=== PATIENT | male | born 1970 | race Hispanic/Latino ===

== ENCOUNTER 2020-05-15 23:50 | Observation (INO) | payer BC ==
--- OUTSIDE RECORDS SUMMARY | 2020-05-15 23:52 | XMS REPORT | Clinical Summary ---
:1970 Author Organization [facility] Address [address] [place] [address] Care Team Providers Name Role Phone Kevin Byers MD Primary Care Provider Allergies Not on File Medications Medication Sig Dispensed Refills Start Date End Date Status lisinopril TK 1 T PO QD WITH 5 12/16/2017 Active (PRINIVIL,ZESTRIL) 2.5 FOOD mg tablet Active Problems Problem Noted Date Sleep apnea 12/31/2017 Essential hypertension 12/31/2017 Bradycardia 12/31/2017 Surgical History Surgery Date Site/Laterality Comments NASAL SINUS SURGERY Medical History Medical History Date Comments Hypertension Sleep apnea, obstructive CPAP Family History Medical History Relation Name Comments Heart attack Father Relation Name Status Comments Father Social History Tobacco Use Types Packs/Day Years Used Date Never Assessed Sex Assigned at Date Recorded Not on file Last Filed Vital Signs Not on file Plan of Treatment Health Maintenance Due Date Last Done Comments INFLUENZA VACCINE 01/30/2020 Results Not on fileafter 05/15/2019 (Home) [place] [address] Advance Directives For more information, please contact: [phone] Type Date 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
[2020-05-16] MEDS ORDERED: MORPHINE 4 MG/ML SYR ONE ×2 (00:18→01:52)
[2020-05-16 00:29] LABS: Absolute Lymphocytes (CBC) 3.7 K/uL (0.7-4.9); Basophils % 0.3 % (0-1.3); Hematocrit 48.1 % (39.6-49.0); Lymphocytes % 21.2 % (15.3-44.8); MPV 8.6 fL (7.6-11.3); RBC Red Blood Cell Count 5.45 M/uL (4.33-5.43)
[2020-05-16 00:32] LABS: Protime INR 1.01
[2020-05-16 00:46] LABS: ALT/SGPT 37 U/L (12-78); AST/SGOT 23 U/L (15-37); Albumin 3.9 g/dL (3.4-5.0); Alkaline Phosphatase 115 U/L (45-117); BUN Blood Urea Nitrogen 21 mg/dL (7-18); Bicarbonate 25 mmol/L (21-32); Bilirubin Direct < 0.1 mg/dL (0-0.2); Bilirubin Total 0.3 mg/dL (0.2-1.0); Glucose Level 96 mg/dL (74-106); Magnesium 2.2 mg/dL (1.8-2.4); NT PRO-BNP 17 pg/mL (<125); Potassium 3.8 mmol/L (3.5-5.1); Protein, Total 8.3 g/dL (6.4-8.2); Sodium Level 139 mmol/L (136-145); Troponin (Emerg Dept Use Only) < 0.02 ng/mL (0.0-0.045)
[2020-05-16] MEDS ORDERED: LORazepam 2 MG/ML VIAL ONE (02:28)
[2020-05-16 02:37] LABS: Urine Blood NEGATIVE (NEG); Urine Glucose NEGATIVE (NEG); Urine Protein NEGATIVE (NEG); Urine Specific Gravity 1.025 (1.005-1.030)
[2020-05-16 02:54] LABS: Barbiturates NEGATIVE (NEGATIVE); Benzodiazepines NEGATIVE (NEGATIVE); Cocaine NEGATIVE (NEGATIVE); METHAMPHETAM NEGATIVE (NEGATIVE); Methadone NEGATIVE (NEGATIVE); Opiates POSITIVE (NEGATIVE); Phencyclidine NEGATIVE (NEGATIVE); THC Cannibis POSITIVE (NEGATIVE)
--- NOTE | 2020-05-16 03:19 | EDPHYS ---
Physician Documentation [facility] Name: Maik Amaral Age: 50 yrs Sex: Male : 1970 Arrival Date: 05/15/2020 Time: 23:51 Bed 8 Private MD: ED Physician Jeancarlos Logan HPI: 05/16 01:14 This 50 yrs old Male presents to ER via Unassigned with complaints of Back mh7 Pain. 01:14 The patient presents with pain that is acute, with no known mechanism of injury. The mh7 symptoms are located in the right subscapular area. 01:15 Onset: The symptoms/episode began/occurred today. The pain does not radiate. mh7 01:15 Associated signs and symptoms: Pertinent negatives: abdominal pain, chest pain, mh7 constipation, dysuria, fever, headache, hematuria, incontinence, nausea, numbness, tingling, urinary retention, vomiting, weakness. The problem was sustained from unknown cause. Modifying factors: The patient symptoms are alleviated by nothing, the patient symptoms are aggravated by supine position. Severity of symptoms: At their worst the symptoms were moderate, earlier today, in the emergency department the symptoms are unchanged. Historical: - Allergies: 00:03 No Known Allergies; lp1 - Home Meds: 00:03 Suboxone sublingual sublingual [Active]; lp1 - PMHx: 00:03 None; lp1 - PSHx: 00:03 R Rotator cuff repair 05/02/20; lp1 - Immunization history:: Adult Immunizations up to date. - Social history:: Smoking status: Patient denies any tobacco usage or history of. ROS: 01:15 Constitutional: Negative for fever, chills, and weight loss, Eyes: Negative for injury, mh7 pain, redness, and discharge, ENT: Negative for injury, pain, and discharge, Neck: Negative for injury, pain, and swelling, Respiratory: Negative for shortness of breath, cough, wheezing, and pleuritic chest pain, Abdomen/GI: Negative for abdominal pain, nausea, vomiting, diarrhea, and constipation, : Negative for injury, bleeding, discharge, and swelling, MS/Extremity: Negative for injury and deformity, Skin: Negative for injury, rash, and discoloration, Neuro: Negative for headache, weakness, numbness, tingling, and seizure, Psych: Negative for depression, anxiety, suicide ideation, homicidal ideation, and hallucinations, Allergy/Immunology: Negative for hives, rash, and allergies, Endocrine: Negative for neck swelling, polydipsia, polyuria, polyphagia, and marked weight changes, Hematologic/Lymphatic: Negative for swollen nodes, abnormal bleeding, and unusual bruising. Exam: 01:15 Head/Face: Normocephalic, atraumatic. Eyes: Pupils equal round and reactive to light, mh7 extra-ocular motions intact. Lids and lashes normal. Conjunctiva and sclera are non-icteric and not injected. Cornea within normal limits. Periorbital areas with no swelling, redness, or edema. Neck: Trachea midline, no thyromegaly or masses palpated, and no cervical lymphadenopathy. Supple, full range of motion without nuchal rigidity, or vertebral point tenderness. No Meningismus. Chest/axilla: Normal chest wall appearance and motion. Nontender with no deformity. No lesions are appreciated. Cardiovascular: Regular rate and rhythm with a normal S1 and S2. No gallops, murmurs, or rubs. Normal PMI, no JVD. No pulse deficits. Respiratory: Lungs have equal breath sounds bilaterally, clear to auscultation and percussion. No rales, rhonchi or wheezes noted. No increased work of breathing, no retractions or nasal flaring. Abdomen/GI: Soft, non-tender, with normal bowel sounds. No distension or tympany. No guarding or rebound. No evidence of tenderness throughout. 01:15 Skin: Warm, dry with normal turgor. Normal color with no rashes, no lesions, and no evidence of cellulitis. MS/ Extremity: Pulses equal, no cyanosis. Neurovascular intact. Full, normal range of motion. Neuro: Awake and alert, GCS 15, oriented to person, place, time, and situation. Cranial nerves II-XII grossly intact. Motor strength 5/5 in all extremities. Sensory grossly intact. Cerebellar exam normal. Normal gait. Psych: Awake, alert, with orientation to person, place and time. Behavior, mood, and affect are within normal limits. 01:15 Constitutional: The patient appears in no acute distress, alert, awake, anxious, uncomfortable. 01:15 Back: pain, that is mild, of the right subscapular area, ROM is painful, with all movement, normal spinal alignment noted, CVA tenderness, is absent, vertebral tenderness, is not appreciated, muscle spasm, is not present. Vital Signs: 00:33 BP 139 / 75; Pulse 95; Resp 18; Pulse Ox 99% on R/A; mg2 01:18 BP 138 / 74; Pulse 91; Resp 18; Temp 98.5; Pulse Ox 97% on R/A; mg2 02:11 BP 132 / 80; Pulse 95; Resp 20; Pulse Ox 97% on R/A; lp1 03:22 Weight 92.99 kg; Height 5 ft. 8 in. (172.72 cm); mg2 04:17 BP 129 / 81; Pulse 100; Resp 20; Pulse Ox 99% on 3 lpm NC; mg2 04:55 BP 131 / 95; Pulse 112; Resp 34; Pulse Ox 100% on 100% Non-rebreather mask; mg2 05:32 BP 152 / 81; Pulse 100; Resp 21; Temp 98; Pulse Ox 99% on 100% Non-rebreather mask; mg2 03:22 Body Mass Index 31.17 (92.99 kg, 172.72 cm) mg2 MDM: 03:16 Differential diagnosis: Basilar Pneumonia chronic back pain, Fracture Pyelonephritis mh7 Pulmonary Embolus. Data reviewed: vital signs, nurses notes, lab test result(s), cardiac enzymes, CBC, electrolytes, urinalysis, urine drug screen, EKG, radiologic studies, CT scan, plain films. Data interpreted: Pulse oximetry: on room air is 97 %. Interpretation: normal. Counseling: I had a detailed discussion with the patient and/or guardian regarding: the historical points, exam findings, and any diagnostic results supporting the discharge/admit diagnosis, lab results, radiology results, the need for further work-up and treatment in the hospital. Response to treatment: the patient's symptoms have markedly improved after treatment. 03:[address] [facility] 05/16 00:02 Order name: Basic Metabolic Panel; Complete Time: 01:12 [facility] 05/16 00:02 Order name: CBC with Diff; Complete Time: :12 [facility] 05/16 00:02 Order name: LFT's; Complete Time: 01:12 [facility] 05/16 00:02 Order name: Magnesium; Complete Time: : [facility] 05/16 00:02 Order name: NT PRO-BNP; Complete Time: 01:12 [facility] 05/16 00:02 Order name: PT-INR; Complete Time: 01:12 [facility] 05/16 00:02 Order name: Chest Single View XRAY [facility] 05/16 00:02 Order name: Troponin (emerg Dept Use Only); Complete Time: 01:12 [facility] 05/16 01:14 Order name: CT Chest For PE Angio [facility] 05/16 01:58 Order name: UDS; Complete Time: 02:58 ea 05/16 02:24 Order name: Urine Dipstick--Ancillary (enter results); Complete Time: 02:58 tt3 05/16 03:17 Order name: COVID-19 la1 05/16 05:24 Order name: SARS-COV-2 RT PCR EDMS 05/16 00:02 Order name: EKG; Complete Time: 00:03 [facility] 05/16 00:02 Order name: Cardiac monitoring; Complete Time: 00:38 [facility] 05/16 00:02 Order name: EKG - Nurse/Tech; Complete Time: 00:38 [facility] 05/16 00:02 Order name: IV Saline Lock; Complete Time: 00:38 [facility] 05/16 00:02 Order name: Labs collected and sent; Complete Time: 00:38 [facility] 05/16 00:02 Order name: O2 Per Protocol; Complete Time: 00:38 [facility] 05/16 00:02 Order name: O2 Sat Monitoring; Complete Time: 00:38 [facility] 05/16 01:58 Order name: Urine Dipstick-Ancillary (obtain specimen); Complete Time: 02:20 ea Administered Medications: 00:10 Drug: morphine 4 mg Route: IVP; Site: right antecubital; mg2 01:19 Follow up: Response: No adverse reaction; Marked relief of symptoms mg2 01:42 Drug: morphine 4 mg Route: IVP; Site: left antecubital; mg2 05:00 Follow up: Response: No adverse reaction mg2 02:20 Drug: Ativan 1 mg Route: IVP; Site: left antecubital; mg2 05:00 Follow up: Response: No adverse reaction mg2 03:43 Drug: Lovenox 1 mg/kg Route: Sub-Q; Site: right lower abdomen; mg2 05:00 Follow up: Response: No adverse reaction mg2 04:48 Drug: Dilaudid 1 mg Route: IVP; Site: left antecubital; mg2 05:37 Follow up: Response: No adverse reaction mg2 04:58 Drug: Lidoderm 5 % (700 mg/patch) 1 patches {Note: ordered by Roney Romero-hospitalist.} mg2 Route: Topical; Site: affected area; 05:36 Follow up: Response: No adverse reaction mg2 04:59 Drug: Ativan 1 mg Route: IVP; Site: left antecubital; mg2 05:36 Follow up: Response: No adverse reaction mg2 Disposition: 05/16/20 03:18 Hospitalization ordered by Ronal Dumas for Inpatient Admission. Preliminary diagnosis is Pulmonary embolism. - Bed requested for Telemetry/MedSurg (Inpatient). - Status is Inpatient Admission. mg2 - Condition is Stable. - Problem is new. - Symptoms have improved. Signatures: Dispatcher [employer] EDMS Francy Negron RN RN 1 Yamila Vaz RN RN Ileana Biggs RN RN Rubin Leon RN RN [facility] [place] Jeancarlos Logan MD MD mh7 Corrections: (The following items were deleted from the chart) 05:27 03:18 Hospitalization Ordered by Ronal Dumas MD for Inpatient Admission. Preliminary cg diagnosis is Pulmonary embolism. Bed requested for Telemetry/MedSurg (Inpatient). Status is Inpatient Admission. Condition is Stable. Problem is new. Symptoms have improved. mh7 05:58 05:27 05/16/2020 03:18 Hospitalization Ordered by Ronal Dumas MD for Inpatient mg2 Admission. Preliminary diagnosis is Pulmonary embolism. Bed requested for Telemetry/MedSurg (Inpatient). Status is Inpatient Admission. Condition is Stable. Problem is new. Symptoms have improved. cg
--- NOTE | 2020-05-16 03:19 | ER ---
Nurse's Notes [facility] Name: Maik Amaral Age: 50 yrs Sex: Male : 1970 Arrival Date: 05/15/2020 Time: 23:51 Bed 8 Private MD: Diagnosis: Pulmonary embolism Presentation: 05/15 23:55 Chief complaint: Patient states: i have back pain. mg2 23:55 Coronavirus screen: Client denies travel out of the [place] in the last 14 days. At this mg2 time, the client does not indicate any symptoms associated with coronavirus-19. Ebola Screen: No symptoms or risks identified at this time. Initial Sepsis Screen: Does the patient meet any 2 criteria? No. Patient's initial sepsis screen is negative. Does the patient have a suspected source of infection? No. Patient's initial sepsis screen is negative. Risk Assessment: Do you want to hurt yourself or someone else? Patient reports no desire to harm self or others. Onset of symptoms was May 16, 2020. 23:55 Method Of Arrival: Ambulatory mg2 23:55 Acuity: JERMAINE 3 mg2 Triage Assessment: 05/16 00:03 General: Appears uncomfortable, Behavior is anxious, restless, Patient unable to lp1 tolerate sitting in stretcher, reports pain is not tolerable sitting in stretcher; Kneeling on ground at this time for comfort, Dr. Carrera at bedside, assisted patient into stretcher for safety . Historical: - Allergies: 00:03 No Known Allergies; lp1 - Home Meds: 00:03 Suboxone sublingual sublingual [Active]; lp1 - PMHx: 00:03 None; lp1 - PSHx: 00:03 R Rotator cuff repair 05/02/20; lp1 - Immunization history:: Adult Immunizations up to date. - Social history:: Smoking status: Patient denies any tobacco usage or history of. Screenin:17 Abuse screen: Denies threats or abuse. Denies injuries from another. Nutritional mg2 screening: No deficits noted. Tuberculosis screening: No symptoms or risk factors identified. Fall Risk IV access (20 points). Assessment: 01:17 General: Appears in no apparent distress. comfortable, Behavior is calm, cooperative. mg2 Pain: Complains of pain in back Pain currently is 4 out of 10 on a pain scale. Quality of pain is described as aching. Neuro: Level of Consciousness is awake, alert, obeys commands, Oriented to person, place, time, situation. Cardiovascular: Capillary refill < 3 seconds Patient's skin is warm and dry. Respiratory: Airway is patent Respiratory effort is even, unlabored, Respiratory pattern is regular, symmetrical. GI: No signs and/or symptoms were reported involving the gastrointestinal system. : No signs and/or symptoms were reported regarding the genitourinary system. EENT: No signs and/or symptoms were reported regarding the EENT system. Derm: Skin is intact, is healthy with good turgor, Skin is pink, warm \T\ dry. normal. Musculoskeletal: Circulation, motion, and sensation intact. Capillary refill < 3 seconds. 01:41 Reassessment: patient can't tolerate lying flat in ct scan table because of pain. mg2 provider informed and ordered to give pain medicine. 02:34 Reassessment: Patient transported to CT at this time, reports may be able to tolerate lp1 lying flat for CT scan. 04:16 Reassessment: patient seen by hospitalist. agreed about the plan for admission. mg2 04:56 Reassessment: RT and Hospitalist telephoner came to see the patient. he was having mg2 shortness of breath and severe pain at his right mid back. Vital Signs: 00:33 BP 139 / 75; Pulse 95; Resp 18; Pulse Ox 99% on R/A; mg2 01:18 BP 138 / 74; Pulse 91; Resp 18; Temp 98.5; Pulse Ox 97% on R/A; mg2 02:11 BP 132 / 80; Pulse 95; Resp 20; Pulse Ox 97% on R/A; lp1 03:22 Weight 92.99 kg; Height 5 ft. 8 in. (172.72 cm); mg2 04:17 BP 129 / 81; Pulse 100; Resp 20; Pulse Ox 99% on 3 lpm NC; mg2 04:55 BP 131 / 95; Pulse 112; Resp 34; Pulse Ox 100% on 100% Non-rebreather mask; mg2 05:32 BP 152 / 81; Pulse 100; Resp 21; Temp 98; Pulse Ox 99% on 100% Non-rebreather mask; mg2 03:22 Body Mass Index 31.17 (92.99 kg, 172.72 cm) mg2 ED Course: 05/15 23:51 Patient arrived in ED. sg 23:52 Jeancarlos Logan MD is Attending Physician. mh7 05/16 00:01 Francy Negron, FELICIANO is Primary Nurse. lp1 00:10 Inserted saline lock: 20 gauge in right antecubital area, using aseptic technique. mg2 Blood collected. 00:24 Chest Single View XRAY In Process Unspecified. EDMS 01:17 Triage completed. mg2 01:17 Patient has correct armband on for positive identification. check viewer on. Pulse mg2 ox on. NIBP on. Door closed. 01:17 No provider procedures requiring assistance completed. mg2 01:18 Arm band placed on. mg2 02:59 CT Chest For PE Angio In Process Unspecified. EDMS 03:18 Ronal Dumas MD is Hospitalizing Provider. mh7 03:30 covid sent to lab. mg2 04:15 Patient admitted, IV remains in place. mg2 Administered Medications: 00:10 Drug: morphine 4 mg Route: IVP; Site: right antecubital; mg2 01:19 Follow up: Response: No adverse reaction; Marked relief of symptoms mg2 01:42 Drug: morphine 4 mg Route: IVP; Site: left antecubital; mg2 05:00 Follow up: Response: No adverse reaction mg2 02:20 Drug: Ativan 1 mg Route: IVP; Site: left antecubital; mg2 05:00 Follow up: Response: No adverse reaction mg2 03:43 Drug: Lovenox 1 mg/kg Route: Sub-Q; Site: right lower abdomen; mg2 05:00 Follow up: Response: No adverse reaction mg2 04:48 Drug: Dilaudid 1 mg Route: IVP; Site: left antecubital; mg2 05:37 Follow up: Response: No adverse reaction mg2 04:58 Drug: Lidoderm 5 % (700 mg/patch) 1 patches {Note: ordered by Roney Romero-hospitalist.} mg2 Route: Topical; Site: affected area; 05:36 Follow up: Response: No adverse reaction mg2 04:59 Drug: Ativan 1 mg Route: IVP; Site: left antecubital; mg2 05:36 Follow up: Response: No adverse reaction mg2 Outcome: 03:18 Decision to Hospitalize by Provider. mh7 05:57 Admitted to Tele accompanied by tech, via wheelchair, room 410, with oxygen, with mg2 chart, Report called to FELICIANO Nolasco 05:57 Condition: stable 05:57 Instructed on the need for admit, Demonstrated understanding of instructions. 05:58 Patient left the ED. mg2 Signatures: Dispatcher [employer] EDMS Da Henley RN RN sg Francy Negron RN RN lp1 Rubin Leon RN RN mg2 Jeancarlos Logan MD MD mh7 Corrections: (The following items were deleted from the chart) 01:17 01:16 Chief complaint: Patient states: i have back pain. mg2 mg2 02:34 00:03 General: Appears uncomfortable, Behavior is anxious, restless, lp1 lp1
--- NOTE | 2020-05-16 03:39 | P.HP ---
Certification for Inpatient Patient admitted to: Observation With expected LOS: <2 Midnights Patient will require the following post-hospital care: None Practitioner: I am a practitioner with admitting privileges, knowledge of patient current condition, hospital course, and medical plan of care. Services: Services provided to patient in accordance with Admission requirements found in Title 42 Section 412.3 of the Code of Federal Regulations <Roney Peterson - Last Filed: 05/16/20 03:39> Patient History Date of Service: 05/16/20 Primary Care Provider: Dr. Byers Reason for admission: PE History of Present Illness: 50-year-old male with history of substance abuse presents emergency department for back pain and shortness of breath. Patient reports that he had right rotator cuff surgery approximately 2 weeks ago, sudden onset pain and shortness of breath last night. Patient was evaluated in the emergency department found to have right-sided pulmonary embolism. Patient was not hypoxic in the emergency department, labs remarkable for elevated white blood cell count at 17.7 but no signs of pneumonia on CT scan. Patient with no history of DVT, no pain in legs. ED provider wishes to admit patient for further evaluation and management. When I saw the patient in the emergency department is awake, alert, oriented x3. Patient reports mild shortness of breath with significant amount of pleuritic pain. - Past Medical/Surgical History Diabetic: No -: Substance abuse -: Right rotator cuff -: Left rotator cuff -: Nasal surgery Psychosocial/ Personal History: Patient lives with his - Social History Smoking Status: Never smoker Alcohol use: Yes CD- Drugs: Yes Caffeine use: Yes Place of Residence: Home <Roney Peterson - Last Filed: 05/16/20 03:39> Date of Service: 05/16/20 <Ronal Dumas - Last Filed: 05/16/20 18:43> Allergies No Known Drug Allergies Allergy (Verified 05/16/20 08:17) Unknown morphine Adverse Reaction (Mild, Verified 05/16/20 08:17) Itching Review of Systems 10-point ROS is otherwise unremarkable Respiratory: Shortness of Breath, Pleuritic Pain <Roney Peterson - Last Filed: 05/16/20 03:39> Physical Examination - Physical Exam General: Alert, In no apparent distress HEENT: Atraumatic, PERRLA, Mucous membr. moist/pink Neck: Supple, 2+ carotid pulse no bruit, No LAD Respiratory: Clear to auscultation bilaterally, Normal air movement Cardiovascular: Regular rate/rhythm, Normal S1 S2 Gastrointestinal: Normal bowel sounds, No tenderness Musculoskeletal: No tenderness Integumentary: No rashes Neurological: Normal gait, Normal speech, Normal strength at 5/5 x4 extr, Normal tone, Normal affect - Studies Laboratory Data (last 24 hrs) 05/16/20 00:08: PT 11.9, INR 1.01 05/16/20 00:08: WBC 17.7 H, Hgb 15.7, Hct 48.1, Plt Count 279 05/16/20 00:08: Sodium 139, Potassium 3.8, BUN 21 H, Creatinine 1.05, Glucose 96, Magnesium 2.2, Total Bilirubin 0.3, AST 23, ALT 37, Alkaline Phosphatase 115 <Roney Peterson - Last Filed: 05/16/20 03:39> - Studies Laboratory Data (last 24 hrs) 05/16/20 00:08: PT 11.9, INR 1.01 05/16/20 00:08: WBC 17.7 H, Hgb 15.7, Hct 48.1, Plt Count 279 05/16/20 00:08: Sodium 139, Potassium 3.8, BUN 21 H, Creatinine 1.05, Glucose 96, Magnesium 2.2, Total Bilirubin 0.3, AST 23, ALT 37, Alkaline Phosphatase 115 <Ronal Dumas - Last Filed: 05/16/20 18:43> Assessment and Plan - Plan Assessment Right-sided pulmonary embolism Plan Right-sided pulmonary embolism: Monitor on telemetry, Lovenox 1 milligram/kilogram twice daily. Consult pulmonology. P.r.n. pain medication. Ultrasound bilateral lower extremity. Anticipate transition to oral anti coagulation and likely discharge later today. Discharge Plan: Home Plan to discharge in: 24 Hours - Advance Directives Does patient have a Living Will: No Does patient have a Durable POA for Healthcare: No - Code Status/Comfort Care Code Status Assessed: Yes (Full code) Critical Care: No Time Spent Managing Pts Care (In Minutes): 55 <Roney Peterson - Last Filed: 05/16/20 03:39> - Plan Plan of care discussed with Roney Peterson, and I agree with the management plan as noted above. <Ronal Dumas - Last Filed: 05/16/20 18:43>
[2020-05-16] MEDS ORDERED: ENOXAPARIN 100 MG/ML SYR SQ ONE (03:41)
[2020-05-16] MEDS ORDERED: HYDROMORPHONE HCL 1 MG/ML INJ ONE (04:53)
[2020-05-16] MEDS ORDERED: LIDOCAINE 4% PATCH ONE (05:06)
[2020-05-16] MEDS ORDERED: MORPHINE 4 MG/ML SYR IV PRN (05:56)
[2020-05-16] MEDS ORDERED: NA CHLORIDE 0.9% 1,000 ML IV SCH (05:56)
[2020-05-16] MEDS ORDERED: ONDANSETRON 4 MG/2 ML VIAL IV PRN (05:56)
[2020-05-16] MEDS ORDERED: HYDROCODONE/APAP 7.5/325 MG TAB PO PRN (05:56)
[2020-05-16 06:25] VITALS: BMI 29.2
[2020-05-16] MEDS: LORazepam 2 MG/ML VIAL IV PRN ×2 (07:35→12:42)
--- NOTE | 2020-05-16 08:16 | RAD REPORT ---
EXAM DESCRIPTION: Lory Single View05/16/2020 12:24 am CLINICAL HISTORY: Chest pain COMPARISON: 2017 FINDINGS: The lungs appear clear of acute infiltrate. The heart is normal size. No gross rib fractu re seen IMPRESSION: No acute abnormalities displayed
[2020-05-16] MEDS ORDERED: INFLUENZA VACCINE (for 3y+) 0.5 ML DOSE IMVAC ONE (10:00)
[2020-05-16 10:44] LABS: Absolute Lymphocytes (CBC) 1.1 K/uL (0.7-4.9); Basophils % 0.2 % (0-1.3); Hematocrit 43.4 % (39.6-49.0); MPV 8.3 fL (7.6-11.3); RBC Red Blood Cell Count 5.03 M/uL (4.33-5.43)
--- NOTE | 2020-05-16 11:04 | RAD REPORT ---
EXAM DESCRIPTION: CT - Chest For Pe Angio - 05/16/2020 3:40 am ADDENDUM #1 Critical findings were discussed with and acknowledged by Dr. Jeancarlos Logan on 05/16/2020 3:09 AM CS T. Electronically signed by: Kedar Portillo MD 05/16/2020 3:17 AM [facility] End of Addendum CLINICAL HISTORY: CHEST PAIN COMPARISON: None. TECHNIQUE: CT CHEST ANGIOGRAPHY WITH IV CONTRAST on 05/16/2020 1:14 AM VENDETTE. MIPS reconstructions wer e generated. This exam was performed according to our departmental dose-optimization program, which includes autom ated exposure control, adjustment of the mA and/or kV according to patient size and/or use of iterati ve reconstruction technique. MIP images were generated. FINDINGS: Thoracic aorta is normal in course and caliber without aneurysm or dissection. Pulmonary a rteries are suboptimally opacified. There are no larger central filling defects. There is suggestion of small filling defects in the medial right lower lobe segmental and subsegmental pulmonary artery b ranches. The heart is mildly enlarged. There is no pericardial effusion. Intrathoracic lymph nodes are not enl arged. There is no pleural effusion, pleural thickening or pneumothorax. Central airways are patent. There a re is bibasilar moderate atelectasis. There are no acute abnormalities within the limited images of the upper abdomen. There are no acute osseous findings. No suspicious bony lesions. IMPRESSION: Somewhat limited study. Suspect small right lower lobe pulmonary emboli. Electronically signed by: Kedar Portillo MD 05/16/2020 3:06 AM [facility] Due to temporary technical issues with the PACS/Fluency reporting system, reports are being signed by the in house radiologist without review as a courtesy to ensure prompt reporting. The interpreting r adiologist is fully responsible for the content of the report.
[2020-05-16 11:08] LABS: Albumin 3.5 g/dL (3.4-5.0); Bilirubin Total 0.6 mg/dL (0.2-1.0); Magnesium 2.1 mg/dL (1.8-2.4); Protein, Total 7.4 g/dL (6.4-8.2)
[2020-05-16 12:13] LABS: White Blood Cell Scan OK (OK)
[2020-05-16 12:14] LABS: Blood Morphology Comment NOT SEEN (NOT SEEN); Platelet Estimate ADEQ
[2020-05-16] MEDS: CYCLOBENZAPRINE 10 MG TAB PO PRN ×2 (12:26→20:15)
[2020-05-16] MEDS: KETOROLAC 30 MG/ML INJ IV PRN ×2 (12:27→20:15)
--- NOTE | 2020-05-16 12:41 | P.CNS ---
Date of Consult: 05/16/20 Primary Care Provider: Dr. Byers Chief Complaint: PE History of Present Illness: Patient is 50 years of age with a history of substance abuse presented to the emergency room with acute onset of right-sided pleuritic chest pain associated with shortness of breath patient had rotator cuff surgery 2 weeks ago as far to have some pulmonary emboli as a little hypoxic no prior history of thromboembolic disease no cardiac history Allergies No Known Drug Allergies Allergy (Verified 05/16/20 08:17) Unknown morphine Adverse Reaction (Mild, Verified 05/16/20 08:17) Itching Home Medications: Bupren/Nalox 1 film PO TID 05/16/20 - Past Medical/Surgical History Diabetic: No -: Substance abuse -: Right rotator cuff -: Left rotator cuff -: Nasal surgery Psychosocial/ Personal History: Patient lives with his - Social History Alcohol use: Yes CD- Drugs: Yes Caffeine use: Yes Place of Residence: Home Review of Systems 10-point ROS is otherwise unremarkable Respiratory: Shortness of Breath Cardiovascular: Chest Pain Physical Examination Temp Pulse Resp BP Pulse Ox 98.2 F 88 20 134/86 97 05/16/20 12:00 05/16/20 12:00 05/16/20 12:00 05/16/20 12:00 05/16/20 12:00 General: Alert, Oriented x3 HEENT: Atraumatic Neck: Supple Respiratory: Clear to auscultation bilaterally, Diminished Cardiovascular: No edema, Regular rate/rhythm, Normal S1 S2 Gastrointestinal: Soft and benign Laboratory Data (last 24 hrs) 05/16/20 00:08: PT 11.9, INR 1.01 05/16/20 00:08: WBC 17.7 H, Hgb 15.7, Hct 48.1, Plt Count 279 05/16/20 00:08: Sodium 139, Potassium 3.8, BUN 21 H, Creatinine 1.05, Glucose 96, Magnesium 2.2, Total Bilirubin 0.3, AST 23, ALT 37, Alkaline Phosphatase 115 - Problems (1) Pulmonary embolism and infarction Current Visit: Yes Status: Acute Plan: Patient is 50 years of age admitted with acute right-sided posterior pleuritic chest pain this is some pulmonary emboli on the chest does CT scan chemistries reviewed white count is elevated lower extremities Dopplers done bladder changer to p.o. Xarelto or equivalent covered by his insurance check room air pulse ox ambulate
--- NOTE | 2020-05-16 13:32 | RAD REPORT ---
EXAM DESCRIPTION: US - Extrem Venous W Compress Isak - 05/16/2020 1:18 pm CLINICAL HISTORY: PE, R/O LE DVT Bilateral leg edema and swelling. COMPARISON: No comparisons TECHNIQUE: Real-time sonographic interrogation of the left and right lower extremity deep venous sys tems was performed. FINDINGS: Normal compressibility, flow augmentation, phasic flow and spontaneous flow is identified in both the left and right lower extremity deep venous systems. IMPRESSION: No sonographic evidence of left or right lower extremity deep venous thrombosis.
[2020-05-16] MEDS: BUPRENORPHINE PO SCH ×2 (13:36→20:17)
[2020-05-16] MEDS: NALOXONE PO SCH ×2 (13:36→20:17)
--- NOTE | 2020-05-16 18:48 | P.PN ---
Date of Service: 05/16/20 Patient with severe pain of right-sided back. Having great difficulty to breathe secondary to his pain. He is very tachypneic, SpO2: 87-88% on RA. He has hunched over on the bed, barely able to move due to the pain. Overnight he was given morphine and hydrocodone with minimal affect. The discontinued opioids and started patient on Toradol and Flexeril. Patient appears to be having very severe muscle spasms in his back. Likely from his recent rotator cuff surgery, the brace, and change in breathing due to the PE. The pain worsened with palpation. He also received Ativan. He has temporary relief, but then continues with these attacks. Nothing else was notable on CT chest. I checked on him again this evening with notable improvement, however still had an episode of this severely debilitating spasm/pain and tachypnea. Will continue flexeril and toradol overnight. Likely dc home in AM with flexeril and xarelto. Patient states he has "prescription strength ibuprofren" at home.
[2020-05-16] MEDS: RIVAROXABAN 15 MG TABLET PO SCH (20:15)
[2020-05-16] MEDS ORDERED: ENOXAPARIN 100 MG/ML SYR SQ SCH (21:00)
[2020-05-16] MEDS: ACETAMINOPHEN 500 MG TAB PO PRN (23:52)
[2020-05-17] MEDS: KETOROLAC 30 MG/ML INJ IV PRN (03:29)
[2020-05-17 04:45] LABS: Absolute Lymphocytes (CBC) 1.7 K/uL (0.7-4.9); Basophils % 0.4 % (0-1.3); Hematocrit 41.6 % (39.6-49.0); Lymphocytes % 16.7 % (15.3-44.8); MPV 8.6 fL (7.6-11.3); RBC Red Blood Cell Count 4.82 M/uL (4.33-5.43)
[2020-05-17 04:57] LABS: Potassium 3.9 mmol/L (3.5-5.1)
[2020-05-17] MEDS: RIVAROXABAN 15 MG TABLET PO SCH ×2 (08:38→20:27)
[2020-05-17] MEDS: BUPRENORPHINE PO SCH ×2 (08:39→14:00)
[2020-05-17] MEDS: NALOXONE PO SCH ×2 (08:39→14:00)
[2020-05-17] MEDS ORDERED: POTASSIUM CL SA 10 MEQ TAB PO ONE (09:00)
--- NOTE | 2020-05-17 15:00 | P.PN ---
Subjective Date of Service: 05/17/20 Primary Care Provider: Dr. Byers Chief Complaint: PE Patient states his back pain is much better. He also denies shortness of breath at rest. He desaturated to 88% on room air at rest. He stated that pleurisy has also improved. Physical Examination - Vital Signs Temperature: 98.4 F Blood Pressure: 153/96 Pulse: 82 Respirations: 18 Pulse Ox (%): 93 - Physical Exam General: Alert, In no apparent distress HEENT: Mucous membr. moist/pink Neck: Supple, JVD not distended Respiratory: Clear to auscultation bilaterally, Normal air movement Cardiovascular: No edema, Regular rate/rhythm, Normal S1 S2 Capillary refill: <2 Seconds Gastrointestinal: Normal bowel sounds, Soft and benign, No tenderness Musculoskeletal: No swelling, No erythema Integumentary: No rashes Neurological: Other (Nonfocal) Assessment And Plan - Current Problems (Diagnosis) (1) Acute respiratory failure with hypoxia Current Visit: Yes Status: Acute (2) Pulmonary embolism and infarction Current Visit: Yes Status: Acute (3) Musculoskeletal pain Current Visit: Yes Status: Acute - Plan Continue Xarelto. Pain management as needed. Incentive spirometer. Increase activity as tolerated. Reassess oxygen requirement in a.m.
[2020-05-17] MEDS: ACETAMINOPHEN 500 MG TAB PO PRN (15:49)
[2020-05-17] MEDS: CYCLOBENZAPRINE 10 MG TAB PO PRN (20:26)
[2020-05-17] MEDS: LORazepam 2 MG/ML VIAL IV PRN (20:28)
[2020-05-17] MEDS ORDERED: BUPRENORPHINE PO SCH (21:00)
[2020-05-17] MEDS ORDERED: NALOXONE PO SCH (21:00)
[2020-05-18] MEDS: KETOROLAC 30 MG/ML INJ IV PRN (03:36)
[2020-05-18 04:19] LABS: BUN Blood Urea Nitrogen 15 mg/dL (7-18); Bicarbonate 27 mmol/L (21-32); Glucose Level 89 mg/dL (74-106); Potassium 3.9 mmol/L (3.5-5.1); Sodium Level 139 mmol/L (136-145)
--- NOTE | 2020-05-18 07:28 | ECHO ---
HEIGHT: 5 ft 8 in WEIGHT: 192 lb 11.2 oz DATE OF STUDY: 05/17/[address]: Cedric Carmona MD 2-DIMENSIONAL: YES M.MODE: YES DOPPLER: YES COLOR FLOW: YES TDS: PORTABLE: DEFINITY: BUBBLE STUDY: DIAGNOSIS: HISTORY OF PULMONARY EMBOLUS CARDIAC HISTORY: CATHERIZATION: NO SURGERY: NO PROSTHETIC VALVE: NO PACEMAKER: NO MEASUREMENTS (cm) DIASTOLIC (NORMALS) SYSTOLIC (NORMALS) IVSd 1.0 (0.6-1.2) LA Diam 3.2 (1.9-4.0) LVEF 65% LVIDd 4.7 (3.5-5.7) LVIDs 3.0 (2.0-3.5) %FS 35% LVPWd 1.3 (0.6-1.2) Ao Diam 3.0 (2.0-3.7) 2 DIMENSIONAL ASSESSMENT: RIGHT ATRIUM: NORMAL LEFT ATRIUM: NORMAL RIGHT VENTRICLE: NORMAL LEFT VENTRICLE: NORMAL TRICUSPID VALVE: NORMAL MITRAL VALVE: NORMAL PULMONIC VALVE: NORMAL AORTIC VALVE: NORMAL PERICARDIAL EFFUSION: NONE AORTIC ROOT: NORMAL LEFT VENTRICULAR WALL MOTION: DOPPLER/COLOR FLOW: COMMENTS: NORMAL LEFT VENTRICULAR SIZE AND FUNCTION. NO WALL MOTION ABNORMALITY. NO EFFUSION. TECHNOLOGIST: MAYE STEPHENS
[2020-05-18] MEDS: RIVAROXABAN 15 MG TABLET PO SCH (07:59)
[2020-05-18] MEDS ORDERED: POTASSIUM CL SA 10 MEQ TAB PO ONE (09:00)
[2020-05-18 10:13] VITALS: BP 138/85; TEMP 97.4
--- NOTE | 2020-05-18 11:31 | P.DS ---
Admission Date: 05/16/20 Discharge Date: 05/18/20 Primary Care Provider: Dr. Byers Disposition: ROUTINE DISCHARGE Reason for Admission: PE Consultations: Pulmonary-Dr. Carmona. - Problems (1) Acute respiratory failure with hypoxia Current Visit: Yes Status: Acute (2) Pulmonary embolism and infarction Current Visit: Yes Status: Acute (3) Musculoskeletal pain Current Visit: Yes Status: Acute Brief History of Present Illness: 50-year-old gentleman with a history of substance abuse presented to the emergency department with a complaint of sudden onset of back pain and shortness of breath. He underwent a right shoulder surgery 3 weeks prior. Workup in the emergency department with CTA thorax demonstrated right-sided pulmonary embolism. Patient was admitted for further management. Hospital Course: Patient was hypoxic on room air during the initial period of hospital stay. He was started on Xarelto for the pulmonary embolism. Venous Doppler of the lower extremities were negative for DVT. His pain was managed with NSAIDS. He is on Suboxone for opiate dependence which was continued during the hospital stay. His echocardiogram was unremarkable. His oxygen saturation is currently 92% on room air. He desaturated to 81% with ambulation on room air. Hypoxia is likely secondary to pulmonary embolism. COVID 19 test was negative. Patient was seen in consultation by pulmonary-Dr. Carmona. Patient considered stable for discharge. He is prescribed Xarelto for PE anticoagulation. He may probably need anticoagulation for 6 months or more. He will follow with Dr. Carmona within 1 week. Vital Signs/Physical Exam: Temp Pulse Resp BP Pulse Ox 97.4 F 60 18 138/85 95 05/18/20 08:00 05/18/20 08:00 05/18/20 08:00 05/18/20 08:00 05/18/20 08:00 General: Alert, In no apparent distress HEENT: Mucous membr. moist/pink Neck: JVD not distended Respiratory: Clear to auscultation bilaterally, Normal air movement Cardiovascular: No edema, Regular rate/rhythm, Normal S1 S2 Gastrointestinal: Normal bowel sounds, Soft and benign, No tenderness Musculoskeletal: No swelling, No erythema Integumentary: No rashes, No breakdown Neurological: Other (Nonfocal.) Laboratory Data at Discharge: WBC 10.4 K/uL (4.3-10.9) D 05/17/20 04:08 Hgb 14.1 g/dL (13.6-17.9) 05/17/20 04:08 Hct 41.6 % (39.6-49.0) 05/17/20 04:08 Plt Count 203 K/uL (152-406) 05/17/20 04:08 PT 11.9 SECONDS (9.5-12.5) 05/16/20 00:08 INR 1.01 05/16/20 00:08 Sodium 139 mmol/L (136-145) 05/18/20 03:30 Potassium 3.9 mmol/L (3.5-5.1) 05/18/20 03:30 BUN 15 mg/dL (7-18) 05/18/20 03:30 Creatinine 0.89 mg/dL (0.55-1.3) 05/18/20 03:30 Glucose 89 mg/dL (74-106) 05/18/20 03:30 Magnesium 2.1 mg/dL (1.8-2.4) 05/16/20 10:10 Total Bilirubin 0.6 mg/dL (0.2-1.0) 05/16/20 10:10 AST 21 U/L (15-37) 05/16/20 10:10 ALT 32 U/L (12-78) 05/16/20 10:10 Alkaline Phosphatase 103 U/L (45-117) 05/16/20 10:10 Home Medications: Bupren/Nalox 1 film PO TID 05/16/20 Ibuprofen 400 mg PO TID PRN #15 tablet 05/18/20 Rivaroxaban [Xarelto] 15 mg PO BID #40 tablet 05/18/20 Rivaroxaban [Xarelto] 20 mg PO DAILY #60 tab 05/18/20 New Medications: Ibuprofen 400 mg PO TID PRN #15 tablet PRN Reason: Pain Rivaroxaban [Xarelto] 20 mg PO DAILY #60 tab Rivaroxaban [Xarelto] 15 mg PO BID #40 tablet Diet: AHA Activity: Ad matthias Followup: Kevin Byers MD [Primary Care Provider] -
[2020-05-18 12:01] VITALS: O2SAT 99
--- NOTE | 2020-05-18 12:08 | P.PN ---
Subjective Date of Service: 05/18/20 Primary Care Provider: Dr. Byers Chief Complaint: PE Subjective: Improving (Patient is doing much better he is ambulating respiratory mentions that he does have some desaturation on exertion some discomfort on the left side today) Review of Systems 10-point ROS is otherwise unremarkable Physical Examination - Vital Signs Temperature: 97.4 F Blood Pressure: 138/85 Pulse: 60 Respirations: 18 Pulse Ox (%): 95 - Physical Exam General: Alert, Oriented x3 Respiratory: Clear to auscultation bilaterally Cardiovascular: No edema, Regular rate/rhythm Assessment & Plan - Problems (Diagnosis) (1) Pulmonary embolism and infarction Current Visit: Yes Status: Acute Plan: Patient admitted with pulmonary embolism the normal left ventricular function doing much better saturation is 99% on room air labs all reviewed white count is now back to normal lab satisfactory recommend discharge on anticoagulants the some low-dose prednisone follow up with me in 2 weeks
[2020-05-18 12:15] LABS: Blood Gas Oxyhemoglobin 94.5 % (94-97); Blood O2 Saturation 96.2 % (92-98.5)
== END 2020-05-18 14:57 | disposition home or self-care (01) ==
LOC: ER 23:50 → ERHOLD 05-16 03:24 → 4TH 05-16 05:39 → 2ND 05-16 15:38
PROVIDERS: ADMIT Hospitalist; ATTEND Internal Medicine
DX: I26.99 Other pulmonary embolism without acute cor pulmonale (principal); J96.01 Acute respiratory failure with hypoxia; Z20.828 Contact with and (suspected) exposure to other viral communicable diseases; Z79.891 Long term (current) use of opiate analgesic; M62.830 Muscle spasm of back; Z98.890 Other specified postprocedural states
CPT/HCPCS: 93005; 93306; 87040 ×2; 85025 ×3; 80048 ×3; 36415 ×2; 83735 ×2; 85610; 80076; 80307 ×8; 81003; 84484; 80053; 83880; 71275; 71045; 93970; 82805; 96372; 99285; U0003 ×2; Q9967; J1650; J1170; J7030

== ENCOUNTER 2021-08-23 13:47 | Emergency (ER) | payer BC ==
--- OUTSIDE RECORDS SUMMARY | 2021-08-23 13:50 | XMS REPORT | Continuity of Care Document ---
:1970 Author Organization [facility] t Address [address] [place] [address] Care Team Providers Name Role Phone MARCO CAMPO Attending Clinician Unavailable CAYLA BORREGO Attending Clinician Unavailable STEFANI AWAN Attending Clinician Unavailable STEFANI AWAN Admitting Clinician Unavailable Problems This patient has no known problems. Allergies, Adverse Reactions, Alerts This patient has no known allergies or adverse reactions. Medications This patient has no known medications. Procedures This patient has no known procedures. Encounters Start End Encounter Admission Attending Care Care Encounter Source Date/Time Date/Time Type Type Clinicians Facility Department ID 2021-03-24 2021-03-24 Outpatient JAHAIRA [facility] [id number] [place] 00:00:00 00:00:00 MARCO [address] 2020-09-27 2020-09-27 Outpatient ELMO [facility] [id number] [place] 00:00:00 00:00:00 CAYLA [address] 2020-09-06 2020-09-06 Outpatient [facility] [id number] [place] 00:00:00 00:00:[address] 2020-05-22 2020-05-23 Outpatient STEFANI AWAN [facility] [id number] [place] 00:00:00 00:00:[address] Results This patient has no known results.
[2021-08-23] MEDS ORDERED: LIDOCAINE 1% W/EPI 1:100,000 MDV 50 ML VIAL ONE (14:47)
[2021-08-23] MEDS ORDERED: FENTANYL CITR 100 MCG/2 ML ONE (14:47)
[2021-08-23] MEDS ORDERED: NA CHLORIDE 0.9% 1,000 ML ONE (14:47)
--- NOTE | 2021-08-23 15:45 | RAD REPORT ---
EXAM DESCRIPTION: RAD - Hand Left 3 View - 08/23/2021 3:20 pm CLINICAL HISTORY: PAIN COMPARISON: No comparisons FINDINGS: Tuft irregularity is seen involving the distal third and fourth finger which could be rela renny to trauma. Suggest correlation with point tenderness in this region. Soft tissue swelling is pres ent involving the third and fourth fingers.
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
--- NOTE | 2021-08-23 16:52 | ER ---
Nurse's Notes [facility] Name: Maik Amaral Age: 51 yrs Sex: Male : 1970 Arrival Date: 08/23/2021 Time: 13:47 Bed 4 Private MD: Diagnosis: Laceration without foreign body of finger without damage to nail-With tuft fracture Presentation: 08/23 13:55 Chief complaint: Patient states: he smashed three fingers of his left hand in a log ap3 splitter. Patient reports the accident occurred at 1320 this afternoon. Coronavirus screen: At this time, the client does not indicate any symptoms associated with coronavirus-19. Ebola Screen: No symptoms or risks identified at this time. Complicating Factors: lacerations are present to three fingers of the patients left hand. Patient is unable to open hand fully for a proper examination. Initial Sepsis Screen: Does the patient meet any 2 criteria? No. Patient's initial sepsis screen is negative. Does the patient have a suspected source of infection? No. Patient's initial sepsis screen is negative. Risk Assessment: Do you want to hurt yourself or someone else? Patient reports no desire to harm self or others. Onset of symptoms was August 23, 2021 at 13:20. 13:55 Method Of Arrival: Ambulatory ap3 13:55 Acuity: JERMAINE 2 ap3 Triage Assessment: 13:59 General: Appears uncomfortable, Behavior is anxious. Pain: Complains of pain in palmar ap3 aspect of proximal phalanx of left little finger, palmar aspect of proximal phalanx of left ring finger and palmar aspect of proximal phalanx of left middle finger Pain radiates to left hand Pain currently is 10 out of 10 on a pain scale. Neuro: Level of Consciousness is awake, alert, obeys commands, Oriented to person, place, time, situation, Appropriate for age. Cardiovascular: Patient's skin is warm and dry. Respiratory: Airway is patent. Injury Description: Laceration sustained to palmar aspect of proximal phalanx of left little finger, palmar aspect of proximal phalanx of left ring finger and palmar aspect of proximal phalanx of left middle finger is contaminated, was sustained 30-60 minutes ago. is bleeding a small amount. Historical: - Allergies: 13:58 No Known Allergies; ap3 - Home Meds: 13:58 Suboxone sublingual [Active]; ap3 - PMHx: 13:58 None; ap3 - Immunization history:: Client reports receiving the 2nd dose of the Covid vaccine. - Social history:: Smoking status: Patient denies any tobacco usage or history of. - Family history:: not pertinent. - Hospitalizations: : No recent hospitalization is reported. Screenin:00 Abuse screen: Denies threats or abuse. Nutritional screening: No deficits noted. ap3 Tuberculosis screening: No symptoms or risk factors identified. 14:00 Abuse screen: Denies threats or abuse. Nutritional screening: No deficits noted. tw2 Tuberculosis screening: No symptoms or risk factors identified. Fall Risk None identified. Assessment: 14:06 General: Appears distressed, Behavior is cooperative, anxious. Neuro: Level of ss7 Consciousness is awake, alert, obeys commands. Cardiovascular: Heart tones S1 S2. Respiratory: Breath sounds are clear bilaterally. GI: No deficits noted. : No deficits noted. EENT: No deficits noted. Injury Description: Crush injury sustained to left hand is deformity noted to left 5th digit. 14:06 Musculoskeletal: Range of motion: limited in DIP of left little finger, PIP of left ss7 little finger, MCP of left little finger, DIP of left ring finger, PIP of left ring finger, MCP of left ring finger, DIP of left middle finger, PIP of left middle finger and MCP of left middle finger Bony deformity noted of left hand Swelling present in left hand Tenderness present in left hand Reports pain in left hand Parent/caregiver report the patient having. 14:13 Reassessment: provider at bedside at this time. tw2 14:50 Reassessment: xray at bedside at this time. tw2 15:30 Reassessment: No changes from previously documented assessment. bleeding stopped at jh6 this time, waiting for x rays returned. 16:29 Reassessment: Patient and/or family updated on plan of care and expected duration. Pain jh6 level reassessed. Patient is alert, oriented x 3, equal unlabored respirations, skin warm/dry/pink. pt soaking hand in iodine and saline. pt given more pain meds prior to irrigation. pt does have family at bedside and is tolerating well. Vital Signs: 13:55 Pulse 72; Resp 18; Temp 97.3; Pulse Ox 99% on R/A; Weight 95.25 kg; Height 5 ft. 8 in. ap3 (172.72 cm); Pain 10/10; 14:41 BP 143 / 81; Pulse 57; Resp 17; Pulse Ox 99% on R/A; tw2 16:00 BP 156 / 100; Pulse 96; Resp 18; Pulse Ox 100% ; Pain 5/10; jh6 13:55 Body Mass Index 31.93 (95.25 kg, 172.72 cm) ap3 ED Course: 13:47 Patient arrived in ED. as 13:57 Meir Lim MD is Attending Physician. ma2 13:58 Triage completed. ap3 14:00 Arm band placed on right wrist. ap3 14:00 Patient has correct armband on for positive identification. Bed in low position. Call ap3 light in reach. Side rails up X2. Pulse ox on. NIBP on. Door closed. Noise minimized. 14:06 No provider procedures requiring assistance completed. Inserted saline lock: 20 gauge ss7 in right antecubital area, using aseptic technique. 14:22 Sandra Romero, FELICIANO is Primary Nurse. [facility] 15:20 XRAY Hand LEFT 3 View In Process Unspecified. EDMS 16:10 Sal Kelley MD is Referral Physician. ma2 16:28 Irrigation of laceration. [facility] 16:51 Sal Kelley MD is Referral Physician. ma2 17:24 Dressings: Kerlix X 1; left hand Amelia x 1 left hand non-adherent dressing x 1 left jh6 hand wound cleaned after jaswinder placed and triple antibiotic placed over wounds. Non adhering dressing applied and kerlex used to hold in place. 2in ortho glass used as splint and jaquan wrap to hold in place. verbal understanding of cleaning and follow up with surgeon in am. 17:28 IV discontinued, intact, bleeding controlled, No redness/swelling at site. Pressure jh6 dressing applied. Administered Medications: 14:49 Not Given (Patient Refused; up to date w/in the year per ptt): Tetanus-Diphtheria tw2 Toxoid Adult 0.5 ml IM once 14:50 Drug: fentaNYL (PF) 50 mcg {Note: RASS 0.} Route: IVP; Site: right antecubital; tw2 15:00 Follow up: Response: No adverse reaction; Pain is decreased tw2 14:50 Drug: NS 0.9% 1000 ml Route: IV; Rate: 1 bolus; Site: right antecubital; tw2 16:16 Drug: fentaNYL (PF) 50 mcg {Note: RASS 0.} Route: IVP; Site: right antecubital; tw2 Outcome: 16:11 Discharge ordered by . [facility] 16:51 Discharge ordered by . [facility] 17:28 Discharged to home ambulatory. [facility] 17:28 Condition: good 17:28 Discharge instructions given to patient, Instructed on discharge instructions, follow up and referral plans. Demonstrated understanding of instructions, follow-up care, medications, Prescriptions given X 2. 17:29 Patient left the ED. [facility] Signatures: Dispatcher [employer] Janina Reyes Tara, RN RN 2 Meir Lim MD MD [facility] Lorraine Wilson RN RN ap3 Sandra Romero RN RN jh6 Rekha Echavarria RN RN ss7
[2021-08-23 18:11] VITALS: TEMP 97.3
[2021-08-23 18:21] VITALS: BP 156/100; O2SAT 100
== END 2021-08-23 17:29 | disposition home or self-care (01) ==
LOC: ER 13:47
PROC: 0JQK0ZZ Repair Left Hand Subcutaneous Tissue and Fascia, Open Approach (ICD-10-PCS; principal; 2021-08-23)
DX: S61.412A Laceration without foreign body of left hand, initial encounter (principal); S62.633A Displaced fracture of distal phalanx of left middle finger, initial encounter for closed fracture; S62.635A Displaced fracture of distal phalanx of left ring finger, initial encounter for closed fracture; W31.89XA Contact with other specified machinery, initial encounter
CPT/HCPCS: 73130; 96374; 99284; 12002; J3010; J7030